=== PATIENT | female | born 1985 | race Caucasian/White ===

== ENCOUNTER 2024-06-21 12:48 | Day surgery (SDC) | payer BC ==
[2024-06-16 11:07] VITALS: BMI 21.3
[2024-06-21] MEDS ORDERED: PROPOFOL 40 ML ONE (14:04)
[2024-06-21] MEDS ORDERED: fentaNYL 50 mcg/mL 1 mL Vial ONE ×3 (14:04→16:54)
[2024-06-21] MEDS ORDERED: Lidocaine 1% PF 5 ML VIAL ONE (14:06)
[2024-06-21] MEDS ORDERED: Rocuronium Bromide 10 MG/ML (10ML VIAL) ONE (14:06)
[2024-06-21] MEDS ORDERED: Lidocaine 2% 6 ML (Jelly) SYR ONE ×2 (14:09→15:58)
[2024-06-21] MEDS ORDERED: Bupivacaine/Epinephrine 0.25% 30 ML VIAL ONE (14:09)
[2024-06-21] MEDS ORDERED: CEFAZOLIN 2 GM VIAL ONE (14:09)
[2024-06-21] MEDS ORDERED: ceFOXitin 1 GM VIAL ONE (14:19)
[2024-06-21] MEDS ORDERED: SUGAMMADEX SODIUM 200 MG/2 ML VIAL ONE (15:23)
[2024-06-21] MEDS ORDERED: Ketorolac Tromethamine 30 MG (1 mL) VIAL ONE (15:23)
[2024-06-21] MEDS ORDERED: Ondansetron PF 4 MG/2 ML Vial ONE (15:23)
[2024-06-21] MEDS ORDERED: Dexamethasone 4 mg/ml Vial ONE (15:23)
[2024-06-21] MEDS ORDERED: Metoclopramide HCl 10 MG (2 mL) VIAL ONE (15:23)
[2024-06-21] MEDS ORDERED: HYDROcodone/Acetaminophen 5/325 mg Tablet ONE (17:28)
== END 2024-06-21 18:22 | disposition home or self-care (01) ==
LOC: CSHSDC 12:48
PROVIDERS: ATTEND Surgery
PROC: 06BY0ZC Excision of Hemorrhoidal Plexus, Open Approach (ICD-10-PCS; principal; 2024-06-21)
DX: K64.8 Other hemorrhoids (principal); Z90.89 Acquired absence of other organs; Z98.890 Other specified postprocedural states; Z88.2 Allergy status to sulfonamides; Z88.5 Allergy status to narcotic agent
CPT/HCPCS: 88304; J0694; J1100; J1885; J2405; J2704; J2765; J3010